=== PATIENT | male | born 1965 | race Caucasian/White ===

== ENCOUNTER → 2017-01-08 | Outpatient (CLI) | payer BC, OTHER ==
--- NOTE | 2017-01-08 10:59 | Diagnostic Imaging Report ---
PROCEDURE: MRI left upper extremity without contrast. TECHNIQUE: Multiplanar, multisequence non contrast-enhanced MRI of the left upper extremity was accomplished. INDICATION: Shoulder pain. COMPARISON: None. FINDINGS: There is increased signal within the distal supraspinatus tendon consistent with tendinopathy. There is some fluid signal within the distal tendon just proximal to the insertion concerning for at least a high-grade partial tear through the articular surface however there is some concern for a full-thickness tear here. There is no tendon retraction. The biceps tendon appears unremarkable. Evaluation of the labrum is somewhat limited without intra-articular fluid. There is some subtle irregularity along the anterior-inferior glenoid labrum which may be some degenerative fraying. A subtle discrete tear would be difficult to entirely exclude. No focal marrow signal abnormality is seen. There is a downward sloping acromion slightly reducing the acromiohumeral space. IMPRESSION: 1. Tendinopathy with at least high-grade partial tearing of the articular surface of the distal supraspinatus tendon with possible subtle full-thickness tear. There is no tendon retraction. 2. Slight irregularity of the anterior infraglenoid may be related to degenerative fraying. A subtle tear would be difficult to entirely exclude. Evaluation of the labrum is limited without intra-articular fluid. Dictated by: Dictated on workstation # [id number]
== END ==
LOC: RAD 08:15
PROVIDERS: ATTEND Orthopaedic Surgery
DX: M75.92 Shoulder lesion, unspecified, left shoulder (principal); M75.112 Incomplete rotator cuff tear or rupture of left shoulder, not specified as traumatic
CPT/HCPCS: 73221

== ENCOUNTER → 2019-10-02 | Outpatient (CLI) | payer BC, OTHER ==
--- NOTE | 2019-10-02 16:06 | Diagnostic Imaging Report ---
INDICATION: Cough x3 months. TECHNIQUE: Two view chest 3:56 PM CORRELATION STUDY: None FINDINGS: Given the technique, heart size is upper limits normal. Vasculature is normal. The lungs are clear with no consolidating infiltrate. There is no significant pleural effusion or pneumothorax. Visualized osseous structures are unremarkable. IMPRESSION: 1. Negative for acute abnormality of the chest. Dictated by: Dictated on workstation # [id number]
== END ==
LOC: RAD 15:21
PROVIDERS: ATTEND Internal Medicine
DX: R05 Cough (principal)
CPT/HCPCS: 71046

== ENCOUNTER → 2020-12-23 | Outpatient (CLI) | payer BC ==
--- NOTE | 2020-12-23 11:50 | Diagnostic Imaging Report ---
PROCEDURE: US Gallbladder. TECHNIQUE: Multiple real-time grayscale images were obtained over the right upper quadrant in various projections. INDICATION: Right upper quadrant abdominal pain and bloating for 5 days COMPARISON: None FINDINGS: The pancreatic head and body appear normal. The tail is obscured by bowel gas. Imaged portions of the aorta and IVC are unremarkable. No focal hepatic lesions are seen. The liver is normal in size. There is no biliary dilatation. The main portal vein is hepatopetal. The common bile duct measures 5 mm in size. The gallbladder wall is not thickened. There is no pericholecystic fluid. No shadowing stones are seen. There does appear to be echogenicity within the gallbladder on some images, but this is thought to be due to artifact. Sonographic Hayden sign is negative. The right kidney measures 12.8 cm in length. There is no hydronephrosis. No free fluid is seen. There is a simple appearing cyst measuring 1.4 x 2.0 x 1.1 cm in size. IMPRESSION: 1. No acute abnormalities seen in the liver or gallbladder. Dictated by: Dictated on workstation # [id number]
== END ==
LOC: RAD 10:00
PROVIDERS: ATTEND Internal Medicine
DX: R10.11 Right upper quadrant pain (principal); R14.0 Abdominal distension (gaseous)
CPT/HCPCS: 76705